=== PATIENT | female | born 1950 | race Two or more races ===

== ENCOUNTER → 2017-11-19 | Outpatient (CLI) | payer MEDICARE ==
[~2017-11-19] MED LIST: REGADENOSON 0.4 MG/5 ML SYRINGE ONE
== END | disposition home or self-care (01) ==
LOC: RAD 07:26
PROVIDERS: ATTEND Internal Medicine Cardiovascular Disease
DX: Z01.810 Encounter for preprocedural cardiovascular examination (principal); I08.2 Rheumatic disorders of both aortic and tricuspid valves; I10 Essential (primary) hypertension
CPT/HCPCS: 78452; 93017; 93306; A9502; J2785

== ENCOUNTER 2018-05-26 14:56 | Observation (INO) | payer MEDICAID, MEDICARE ==
[~2018-05-26] VITALS: Ht 152.4 cm; Wt 76.0 kg
[~2018-05-26 14:56] MED LIST changes: +BUPIVACAINE/PF 0.5% ONE; +ENAL10TA PO; +EPINEPHRINE 1 MG/ML, 1ML ONE; +FENO145T32 PO; +HYDR12.58 PO; +MELO7.5T31 PO; +PRAV20TA2 PO; -REGADENOSON 0.4 MG/5 ML SYRINGE ONE
[2018-05-26] MEDS ORDERED: GABAPENTIN 300 MG CAPSULE PO ONE (15:00)
[2018-05-26] MEDS ORDERED: ACETAMINOPHEN 500 MG TABLET PO ONE (15:00)
[2018-05-26] MEDS ORDERED: MIDAZOLAM 1 MG/ML, 2ML ONE (15:15)
[2018-05-26] MEDS ORDERED: FENTANYL PF 250 MCG/5ML ONE (15:16)
[2018-05-26] MEDS ORDERED: LIDOCAINE GEL 2%, 5ML ONE (15:18)
[2018-05-26] MEDS: LACTATED RINGERS 1,000 ML IV SCH (15:33)
[2018-05-26 15:34] VITALS: BP 154/77
[2018-05-26] MEDS ORDERED: SUCCINYLCHOLINE 20 MG/ML, 10ML ONE (15:45)
[2018-05-26] MEDS ORDERED: PHENYLEPHRINE 10 MG/ML ONE (15:45)
[2018-05-26] MEDS ORDERED: PROPOFOL 10 MG/ML, 20ML ONE (16:45)
[2018-05-26] MEDS ORDERED: BUPIVACAINE/PF 0.5% ONE (16:45)
[2018-05-26] MEDS ORDERED: DEXAMETHASONE 4 MG/ML, 1ML ONE (16:45)
[2018-05-26] MEDS ORDERED: ONDANSETRON 2MG/ML, 2ML ONE (16:45)
[2018-05-26] MEDS ORDERED: CEFAZOLIN 1,000 MG ONE (16:45)
[2018-05-26] MEDS ORDERED: PROMETHAZINE 25 MG/ML, 1ML IV PRN (17:00)
[2018-05-26] MEDS ORDERED: EPHEDRINE 50 MG/ML, 1ML IM PRN (17:00)
[2018-05-26] MEDS ORDERED: MEPERIDINE/PF 25MG/0.5ML IVPush PRN (17:00)
[2018-05-26] MEDS ORDERED: OXYcodone 5 MG/5 ML ORAL.SOL UDC PO PRN (17:00)
[2018-05-26] MEDS ORDERED: ONDANSETRON 2MG/ML, 2ML IV PRN ×2 (17:00→21:30)
[2018-05-26] MEDS ORDERED: SCOPOLAMINE PATCH, 1.5MG PATCH.TD72 TD PRN (17:00)
[2018-05-26] MEDS ORDERED: MIDAZOLAM 1 MG/ML, 2ML IV PRN (17:00)
[2018-05-26] MEDS ORDERED: LABETALOL 5MG/ML, 20ML IV PRN (17:00)
[2018-05-26] MEDS ORDERED: ALBUTEROL/IPRATROPIUM 2.5MG/0.5MG, 3 ML NPPB PRN (17:00)
[2018-05-26] MEDS ORDERED: FENTANYL PF 100 MCG/2ML ONE (18:22)
[2018-05-26] MEDS ORDERED: OXYcodone 5 MG/5 ML ORAL.SOL UDC ONE (18:23)
[2018-05-26] MEDS: FENTANYL PF 100 MCG/2ML IV PRN ×3 (18:25→18:43)
[2018-05-26] MEDS ORDERED: HYDROmorphone 2 MG/ML, 1ML ONE (18:54)
[2018-05-26] MEDS: HYDROmorphone 1 MG/ML, 1ML IV PRN ×3 (18:56→19:18)
[2018-05-26] MEDS ORDERED: MELOXICAM 15 MG TABLET PO PRN (21:30)
[2018-05-26] MEDS: PRAVASTATIN 20 MG TABLET PO SCH (22:28)
[2018-05-27] MEDS: CEFAZOLIN PMX 1GM/50ML 50 ML IV SCH ×2 (03:44→09:04)
[2018-05-27] MEDS: LACTATED RINGERS 1,000 ML IV SCH (05:40)
[2018-05-27 06:55] VITALS: BP 99/60
[2018-05-27] MEDS: HYDROCHLOROTHIAZIDE 12.5 MG CAPSULE PO SCH (09:00)
[2018-05-27] MEDS: ENALAPRIL 10 MG TABLET PO SCH (09:00)
[2018-05-27] MEDS: FENOFIBRATE 145 MG TABLET PO SCH (09:02)
[2018-05-27 13:57] VITALS: BP 95/51
[2018-05-27 20:00] VITALS: BP 101/60
[2018-05-27] MEDS ORDERED: MORPHINE SULFATE 4 MG/ML, 1ML ONE (20:49)
[2018-05-27] MEDS: morphine SULFATE 10 MG/ML, 1ML IV PRN (21:03)
[2018-05-27] MEDS: PRAVASTATIN 20 MG TABLET PO SCH (21:04)
[2018-05-28 02:11] VITALS: BP 103/59
[2018-05-28] MEDS ORDERED: MORPHINE SULFATE 4 MG/ML, 1ML ONE (03:41)
[2018-05-28] MEDS: OXYcodone/APAP 5/325MG TABLET PO PRN ×2 (03:50→09:54)
[2018-05-28] MEDS: morphine SULFATE 10 MG/ML, 1ML IV PRN (03:50)
[2018-05-28 07:15] VITALS: BP 116/65
[2018-05-28] MEDS: ENALAPRIL 10 MG TABLET PO SCH (09:54)
[2018-05-28] MEDS: FENOFIBRATE 145 MG TABLET PO SCH (09:54)
[2018-05-28] MEDS: HYDROCHLOROTHIAZIDE 12.5 MG CAPSULE PO SCH (09:54)
[2018-05-28] MEDS ORDERED: OXYC5CAP2 PO (13:25)
== END 2018-05-28 13:40 | disposition home or self-care (01) ==
LOC: OUT 14:56 → 4NOR 20:30 → OUT 22:03 → DCLOUNGE 05-28 13:20
PROVIDERS: ADMIT Orthopaedic Surgery; ATTEND Orthopaedic Surgery
DX: M19.021 Primary osteoarthritis, right elbow (principal); M06.9 Rheumatoid arthritis, unspecified
CPT/HCPCS: 24365; 64718; 73070; 96365; 96366; 96375; 96376; C1713; C1776; G0378; J0171; J0330; J0690; J1100; J1170; J2250; J2270; J2370; J2405; J2704; J3010; J3490; J7120

== ENCOUNTER 2021-02-13 10:29 | Outpatient (CLI) | payer MEDICARE ==
[~2021-02-13 10:29] MED LIST changes: -BUPIVACAINE/PF 0.5% ONE; -ENAL10TA PO; +ENAL10TA9 PO; -EPINEPHRINE 1 MG/ML, 1ML ONE; -HYDR12.58 PO; +HYDROCHLOROTH12.5 MG PO; +OXYC5CAP2 PO
== END 2021-02-13 23:59 | disposition home or self-care (01) ==
LOC: CFH 10:29
PROVIDERS: ATTEND Family Medicine
DX: N63.20 Unspecified lump in the left breast, unspecified quadrant (principal)
CPT/HCPCS: 77062; 77066; G0279